=== PATIENT | male | born 1960 | race Caucasian/White ===

== ENCOUNTER 2021-05-03 07:55 | Day surgery (SDC) | payer MEDICAID ==
[2021-05-03] VITALS (10 sets, daily range): BP systolic 130–178; BP diastolic 74–118
[~2021-05-03] VITALS: Ht 170.2 cm; Wt 58.7 kg
[2021-05-03] MEDS ORDERED: diphenhydrAMINE 25mg capsule PO PRN (08:20)
[2021-05-03 09:11] LABS: BASOPHILS # (AUTO) 0.1 X10'3 (0-0.2); EOSINOPHILS # (AUTO) 0.4 X10'3 (0-0.9); HEMOGLOBIN 13.5 g/dl (14.0-17.9); MEAN CORPUSCULAR HEMOGLOBIN 30.1 PG (27.0-31.0); MONOCYTES # (AUTO) 0.9 X10'3 (0-0.9)
[2021-05-03 09:13] LABS: BASOPHILS % (AUTO) 0.7 % (0-1); EOSINOPHILS % (AUTO) 3.6 % (0-6); HEMATOCRIT 39.7 % (42.0-52.0); LYMPHOCYTES # (AUTO) 1.6 X10'3 (1.1-4.8); LYMPHOCYTES % (AUTO) 14.8 % (21-51); MEAN CORPUSCULAR VOLUME 88.6 FL (78-98); MEAN PLATELET VOLUME 8.4 FL (7.4-10.4); MONOCYTES % (AUTO) 8.7 % (2-12); NEUTROPHILS # (AUTO) 7.7 X10'3 (1.8-7.7); NEUTROPHILS % (AUTO) 72.2 % (42-75); PLATELET COUNT 173 X10'3 (140-440); RED BLOOD COUNT 4.48 X10'6 (4.70-6.10); WHITE BLOOD COUNT 10.7 X10'3 (4.5-11.0)
[2021-05-03] MEDS ORDERED: CARV12.545 PO (09:17)
[2021-05-03] MEDS ORDERED: folic acid PO (09:17)
[2021-05-03] MEDS ORDERED: LEVO175T7 PO (09:17)
[2021-05-03] MEDS ORDERED: HYDR-3964 PO (09:17)
[2021-05-03] MEDS ORDERED: HYDR200T84 PO (09:17)
[2021-05-03] MEDS ORDERED: UMEC62.5 INH (09:17)
[2021-05-03] MEDS ORDERED: PRED2.5T4 PO (09:17)
[2021-05-03] MEDS ORDERED: ATOR80TA PO (09:17)
[2021-05-03] MEDS ORDERED: ALBUTEROL INH (09:17)
[2021-05-03] MEDS ORDERED: NICO-687 TOP (09:17)
[2021-05-03] MEDS ORDERED: ACET-75 PO (09:17)
[2021-05-03] MEDS ORDERED: FLO0.4C PO (09:17)
[2021-05-03] MEDS ORDERED: FLUT1AER INH (09:17)
[2021-05-03] MEDS ORDERED: ASPI81TA52 PO (09:17)
[2021-05-03] MEDS ORDERED: GABA-534 PO (09:17)
[2021-05-03] MEDS ORDERED: NITR0.4T48 SL (09:17)
[2021-05-03] MEDS ORDERED: OMEP-50 PO (09:17)
[2021-05-03] MEDS ORDERED: LISI40TA13 PO (09:17)
[2021-05-03 09:23] LABS: ALBUMIN 3.4 G/DL (3.4-5.0); ANION GAP 5 (8-16); BLOOD UREA NITROGEN 14 MG/DL (7-18); CALCIUM 8.6 MG/DL (8.5-10.1); CHLORIDE 107 MMOL/L (99-107); GLUCOSE 83 MG/DL (70-104); POTASSIUM 4.2 MMOL/L (3.5-5.1); SODIUM 141 MMOL/L (135-145); TOTAL CARBON DIOXIDE 29.4 MMOL/L (24-32); eGFR 75 ML/MIN
[2021-05-03] MEDS: normal saline 1,000 ML IV SCH ×2 (09:35→13:29)
[2021-05-03] MEDS ORDERED: iohexol 350MG/ML 100ml bottle IV ONE ×2 (09:58→10:41)
[2021-05-03] MEDS ORDERED: LIDOcaine 1% (10mg/ml)w/preservative injection 20ml MDV ONE (09:58)
[2021-05-03] MEDS ORDERED: fentaNYL/PF 50MCG/1 ML 2ML syringe ONE (09:58)
[2021-05-03] MEDS ORDERED: heparin 1,000unit/ml 10ml vial 10 ML ONE (09:58)
[2021-05-03] MEDS ORDERED: midazolam 1 mg/ML 2ml injection ONE ×3 (09:58→11:01)
[2021-05-03] MEDS ORDERED: iohexol 350 MG/ML 50ML vial IV ONE (09:58)
[2021-05-03] MEDS ORDERED: clopidogrel 300mg tablet ONE (11:17)
[2021-05-03] MEDS ORDERED: HYDROcodone/acetaminophen 5mg/325mg tablet PO PRN (11:50)
[2021-05-03] MEDS ORDERED: ondansetron/PF 4mg/2ml inj IV PRN (11:50)
[2021-05-03] MEDS ORDERED: proCHLORperazine 10 MG/2 ml inj IV PRN (11:50)
[2021-05-03] MEDS ORDERED: normal saline 1000ml 1,000 ML IV SCH (11:50)
[2021-05-03] MEDS ORDERED: HYDROcodone/acetaminophen 10/325mg tab PO PRN (11:50)
[2021-05-03] MEDS ORDERED: cloNIDine 0.1 mg tablet PO ONE (12:20)
== END 2021-05-03 15:15 | disposition home or self-care (01) ==
LOC: SSTAY O 07:55
PROVIDERS: ATTEND Internal Medicine Cardiovascular Disease
DX: R07.89 Other chest pain (principal); I25.119 Atherosclerotic heart disease of native coronary artery with unspecified angina pectoris; I10 Essential (primary) hypertension; E78.5 Hyperlipidemia, unspecified; J44.9 Chronic obstructive pulmonary disease, unspecified; I42.9 Cardiomyopathy, unspecified; F17.210 Nicotine dependence, cigarettes, uncomplicated; Z86.73 Personal history of transient ischemic attack (TIA), and cerebral infarction without residual deficits; Z79.899 Other long term (current) drug therapy
CPT/HCPCS: 80048; 83735; 85025; 85610; 93005; 93458; 93571; 99152; 99153; C1725; C1751; C1760; C1769; C1874; C1894; C9600; C9601; J1644; J2001; J2250; J3010; J7030; Q0163; Q9967; A4620; A6258